=== PATIENT | female | born 1985 | race Two or more races ===

== ENCOUNTER 2021-03-23 08:04 | Outpatient (REF) | payer OTHER, SELFPAY ==
[2021-03-23 09:06] LABS: Binax Internal Control QC Valid; Binax Now Covid-19 Ag Positive (Negative)
== END 2021-03-23 08:05 | disposition home or self-care (01) ==
LOC: HO.LAB 08:04
PROVIDERS: Visit Provider Internal Medicine
DX: Z20.822 Contact with and (suspected) exposure to COVID-19 (principal)
CPT/HCPCS: 36415; C9803